=== PATIENT | female | born 1990 | race American Indian/Alaskan Native ===

== ENCOUNTER 2019-11-26 15:31 | Emergency (ER) | payer SELFPAY ==
[2019-11-26 16:21] VITALS: BP 164/101
--- NOTE | 2019-11-26 16:27 | Emergency Department Report ---
Chief Complaint: Urogenital-Female Stated Complaint: ECTOPIC Time Seen by Provider: 11/26/19 16:19 - HPI History of Present Illness: This is a 29-year-old female nontoxic, well nourished in appearance, no acute signs of distress presents to the ED for a test. Patient stated she was seen by her [facility] [place] and had a negative urine test but is requesting for a blood test. Patient stated she has symptoms of such as nausea and missed menstrual cycle. Patient denies any abdominal or pelvic pain. Denies any pain. Denies any vaginal bleeding. Denies any bladder or bowel instability. Patient denies any urinary symptoms. Denies any fever, chills, nausea, vomiting, headache, stiff neck, chest pain or shortness of breath. Patient denies any numbness or tingling. Denies any allergies. - Exam Vital Signs: Vital Signs 11/26/19 16:19 Temperature 98 F Pulse Rate 82 Respiratory 16 Rate Blood Pressure 164/101 O2 Sat by Pulse 100 Oximetry Physical Exam: Abdominal exam within normal limits with no tenderness or distention. Normal bowel movements. No flank tenderness. No pelvic tenderness. No urinary symptms. Exam within normal limits. MSE screening note: Focused history and physical exam performed. Due to findings the following was ordered: ED Medical Decision Making - Medical Decision Making 29-year-old female that is requesting for a blood test. Patient had a negative test and has just seen a OBGYN. Vitals are stable. Exam is unremarkable. Was educated on symptoms or ectopic symptoms and to return to the ED D[facility]. Patient was instructed to Follow-up with a OBGYN doctor in 3-5 days or if symptoms worsen and continue return to emergency room as soon as possible. At time of discharge, the patient does not seem toxic or ill in appearance. No acute signs of distress noted. Patient agrees to discharge treatment plan of care. No further questions noted by the patient. ED Disposition for MSE Clinical Impression: Missed menses Disposition: MED SCREENING EXAM-LEFT Is pt being admited?: No Does the pt Need Aspirin: No Condition: Stable Additional Instructions: Follow-up with a OBGYN doctor in 3-5 days or if symptoms worsen and continue return to emergency room as soon as possible. Referrals: [facility]IMARY [facility]ARE, [Primary Care Provider] - 3-5 Days EDMUND CHOU MD [Staff Physician] - 3-5 Days [facility] [Provider Group] - 3-5 Days
== END 2019-11-26 19:34 | disposition left against medical advice (07) ==
LOC: ED 15:31
DX: N91.2 Amenorrhea, unspecified (principal)
CPT/HCPCS: 99281

== ENCOUNTER 2020-10-22 22:34 | Emergency (ER) | payer SELFPAY ==
[2020-10-22 23:22] VITALS: BP 143/90
[2020-10-23 00:08] LABS: Bilirubin,Urine NEG (Negative); Blood,Urine MOD (Negative); Color,Urine Colorless (Yellow); Protein,Urine <15 mg/dL mg/dL (Negative); Urobilinogen,Urine < 2.0 mg/dL (<2.0); WBC,Urine < 1.0 /HPF (0.0-6.0)
[2020-10-23 00:09] LABS: Basophils # (Auto) 0.1 K/mm3 (0.0-0.1); Basophils % (Auto) 0.6 % (0.0-1.8); Eosinophils # (Auto) 0.1 K/mm3 (0.0-0.4); Eosinophils % (Auto) 0.6 % (0.0-4.3); Hematocrit 36.4 % (30.3-42.9); Hemoglobin 12.1 gm/dl (10.1-14.3); Lymphocytes # (Auto) 3.4 K/mm3 (1.2-5.4); Lymphocytes % (Auto) 31.2 % (13.4-35.0); Mean Corpuscular HGB Conc 33 % (30-34); Mean Corpuscular Volume 85 fl (79-97); Monocytes # (Auto) 0.6 K/mm3 (0.0-0.8); Monocytes % (Auto) 5.2 % (0.0-7.3); Platelet Count 249 K/mm3 (140-440); Red Blood Count 4.29 M/mm3 (3.65-5.03); Red Cell Distribution Width 15.5 % (13.2-15.2)
--- NOTE | 2020-10-23 00:46 | Emergency Department Report ---
ED Female HPI - General Chief complaint: Vaginal Bleeding Stated complaint: BLEEDING 10 WEEKS Time Seen by Provider: 10/23/20 00:28 Source: patient Mode of arrival: Ambulatory Limitations: No Limitations - History of Present Illness Initial comments: 30-year-old female with a past medical history of ectopic but no other significant past history presents to the ER today complaint of vaginal bleeding. Patient states that she is 10 weeks based on her last menstrual cycle which was August 16, 2020. Patient states that she found out she was about 2 weeks ago. She has not established with an [facility] as yet. She states that she started with bleeding around 9:00 last night. She states that she felt a gush, when she went to the bathroom she noted was a large amount of blood and then a few minutes later passed a clot. She states that so far she is use 1 pad, but since she got to the ER bleeding has slowed down, and is just more when she wipes. She denies any associated abdominal cramping or pelvic pain. She denies any abnormal passage of tissue or any abnormal discharge. She denies any UTI symptoms, fever or chills or any other symptoms at this time. Complaint: vaginal bleeding -: Sudden (last night) - Related Data Allergies Allergy/AdvReac Type Severity Reaction Status Date / Time No Known Allergies Allergy Unverified 11/26/19 16:21 ED Review of Systems ROS: Stated complaint: BLEEDING 10 WEEKS Other details as noted in HPI Comment: All other systems reviewed and negative Gastrointestinal: denies: abdominal pain, nausea, vomiting, diarrhea, constipation, hematemesis, melena, hematochezia Genitourinary: other (Abnormal vaginal bleeding). denies: urgency, dysuria, discharge Musculoskeletal: denies: back pain, joint swelling, arthralgia Neurological: denies: headache, weakness, paresthesias Hematological/Lymphatic: denies: easy bleeding, easy bruising ED Past Medical Hx - Past Medical History Previous Medical History?: Yes Hx Hypertension: Yes Additional medical history: chronic anemia, gastritis, umbilical hernia - Surgical History Past Surgical History?: No - Social History Smoking Status: Never Smoker Substance Use Type: None ED Physical Exam - General Limitations: No Limitations General appearance: alert, in no apparent distress - Head Head exam: Present: atraumatic, normocephalic, normal inspection - Respiratory Respiratory exam: Present: normal lung sounds bilaterally. Absent: respiratory distress - Cardiovascular Cardiovascular Exam: Present: regular rate, normal rhythm, normal heart sounds - GI/Abdominal GI/Abdominal exam: Present: soft. Absent: distended, tenderness - Neurological Exam Neurological exam: Present: alert, oriented X3, CN II-XII intact, normal gait - Psychiatric Psychiatric exam: Present: normal affect, normal mood - Skin Skin exam: Present: intact ED Course Vital Signs 10/22/20 23:13 Temperature 98.9 F Pulse Rate 121 H Respiratory 18 Rate Blood Pressure 143/90 O2 Sat by Pulse 99 Oximetry ED Medical Decision Making - Lab Data Result diagrams: 10/22/20 23:30 - Radiology Data Radiology results: report reviewed 0217: Patient presented to the ER today complaint of vaginal bleeding and being 10 weeks . She has a prior history of ectopic . She denies any associated pelvic pain or abdominal pain. She reported that bleeding has slowed down since arriving to the ER. Ultrasound showed a live IUP measuring 9 weeks and 1 day. Patient is a positive, no indication for RhoGam at this time. Urinalysis negative for UTI. CBC unremarkable. Discussed results with patient. She is well-appearing, nontoxic, is not in any acute distress. Vital signs reviewed, she was tachycardic at 121 on arrival to the ER, but repeat heart rate by me showed improvement to 103. Patient is neurologically intact. She is well-hydrated. No indication for any further work-up, emergent consult at this time. Patient instructed to follow-up if her [facility] next week. She understands to return to the ER if her symptoms worsens or changes in any way. - Medical Decision Making Findings [address] [address] Ultrasound Report Signed Patient: MARLO DARLING MR#: [id number] 8 : 1990 Acct:[id number] Age/Sex: 30 / F ADM Date: 10/22/20 Loc: ED Attending Dr: Ordering Physician: DAPHNE CONTRERAS Date of Service: 10/23/20 Procedure(s): US OB transvaginal Accession Number(s): [id number] cc: DAPHNE CONTRERAS ULTRASOUND OBSTETRIC INDICATION / CLINICAL INFORMATION: vag bleeding/10weeks preg/hx ectopic. Clinical Gestational Age (GA) in weeks, days: 9, 5 TECHNIQUE: Transvaginal. COMPARISON: None available. FINDINGS: GESTATIONAL SAC: Well-defined oval shape and intrauterine in location. YOLK SAC: No significant abnormality. EMBRYO/FETUS: No significant abnormality. - [place]-Rump Length = 2.5 cm = 9, 1 weeks, days - Heart Rate, beats per minute (if present) = 179 ADNEXA: No significant abnormality. FREE FLUID: None. ADDITIONAL FINDINGS: None. IMPRESSION: 1. Single, living intrauterine with estimated sonographic age of 9, 1 weeks, days. Signer Name: Katie Quintero MD Signed: 10/23/2020 1:44 AM Workstation Name: [id number] Transcribed By: DT Dictated By: Vamshi Quintero MD Electronically Authenticated By: Vamshi Quintero MD Signed Date/Time: 10/23/20143 DD/ 1 TD/TT: Critical care attestation.: If time is entered above; I have spent that time in minutes in the direct care of this critically ill patient, excluding procedure time. ED Disposition Clinical Impression: Threatened miscarriage in early Disposition: DC-01 TO HOME OR SELFCARE Is pt being admited?: No Does the pt Need Aspirin: No Condition: Stable Instructions: Threatened Miscarriage Additional Instructions: Recommend that you follow-up with [facility] listed on your discharge instructions next week. Recommend no strenuous activity or sexual activity until follow-up with [facility]. You can take Tylenol if you develop any pain. If your symptoms worsens or changes in any way return to the ER. Referrals: ROB CERRATO MD [Primary Care Provider] - 3-5 Days Time of Disposition: 02:06
--- NOTE | 2020-10-23 01:48 | Ultrasound Report ---
ULTRASOUND OBSTETRIC INDICATION / CLINICAL INFORMATION: vag bleeding/10weeks preg/hx ectopic. Clinical Gestational Age (GA) in weeks, days: 9, 5 TECHNIQUE: Transvaginal. COMPARISON: None available. FINDINGS: GESTATIONAL SAC: Well-defined oval shape and intrauterine in location. YOLK SAC: No significant abnormality. EMBRYO/FETUS: No significant abnormality. - [place]-Rump Length = 2.5 cm = 9, 1 weeks, days - Heart Rate, beats per minute (if present) = 179 ADNEXA: No significant abnormality. FREE FLUID: None. ADDITIONAL FINDINGS: None. IMPRESSION: 1. Single, living intrauterine with estimated sonographic age of 9, 1 weeks, days. Signer Name: Katie Quintero MD Signed: 10/23/2020 1:44 AM Workstation Name: [id number]
[2020-10-23 02:53] LABS: Alanine Aminotransferase 12 units/L (7-56); Albumin 4.2 g/dL (3.9-5); Blood Urea Nitrogen 8 mg/dL (7-17); Calcium 9.6 mg/dL (8.4-10.2); Hemolysis Index 11
[2020-10-23 03:02] LABS: BUN/Creatinine Ratio 13
== END 2020-10-23 02:23 | disposition home or self-care (01) ==
LOC: ED 22:34
DX: O20.0 Threatened abortion (principal); I10 Essential (primary) hypertension; D64.9 Anemia, unspecified; Z3A.10 10 weeks gestation of pregnancy
CPT/HCPCS: 36415; 76817; 80053; 81001; 84702; 84703; 85025; 86900; 86901